=== PATIENT | female | born 1960 | race Caucasian/White ===

== ENCOUNTER → 2017-01-23 | Outpatient (CLI) | payer OTHER ==
--- NOTE | 2017-01-23 20:43 | DI ---
MRI LUMBAR SPINE SCAN WITHOUT IV CONTRAST, 01/23/2017 11:04 AM: Clinical History: Right radiculopathy. Previous Exam: None. Technique: Sagittal and axial T2 weighted; sagittal T1 weighted and T2 STIR; and axial PD. The vertebral bodies are of normal height and size. There is severe disc space narrowing at L4-5 and moderately severe narrowing at L5-S1. The remaining disc spaces are normal height. The L3-4 through L 5-S1 disc spaces show desiccation change. The cord terminates at L1, and the conus medullaris is norm al. The T10-11 through L2-3 disc spaces are normal. L3-4 through L5-S1 all show mild circumferentiall y bulging but not herniated discs without canal or neural foraminal stenosis. L4-5 shows a disc annul us tear that extends from the midline to just to the left of midline. Readin. There are bulging but not herniated discs without canal or neural foraminal stenosis from L3-4 th rough L5-S1. There is a left anterolateral L4-5 disc annulus tear. 2. The disc spaces from T10-11 through L2-3 are normal.
== END ==
LOC: MRI 10:58
PROVIDERS: ATTEND Family Medicine
DX: M54.16 Radiculopathy, lumbar region (principal); M47.816 Spondylosis without myelopathy or radiculopathy, lumbar region; M47.817 Spondylosis without myelopathy or radiculopathy, lumbosacral region
CPT/HCPCS: 72148